=== PATIENT | male | born 1995 | race Caucasian/White ===

== ENCOUNTER 2020-02-21 20:32 | Emergency (ER) | payer BC ==
[~2020-02-21] VITALS: Ht 190.5 cm; Wt 102.1 kg
[2020-02-21] MEDS ORDERED: LISD50CA2 PO (20:45)
[2020-02-21] MEDS ORDERED: METH10TA4 PO (20:45)
[2020-02-21] MEDS ORDERED: ALPR0.5T PO (20:45)
--- NOTE | 2020-02-21 20:52 | NUR ---
Gus is with patient in room now with suture kit to treat patient.
[2020-02-21] MEDS ORDERED: LIDOCAINE 1%-EPI 1:100,000 20 ML VIAL IJ ONE (21:15)
[2020-02-21] MEDS ORDERED: SODIUM BICARBONATE 4.2 % (NEUT) 5 ML VIAL TP ONE (21:15)
[2020-02-21] MEDS ORDERED: TDAP DIPH,PERTUSS,TET VAC/PF 0.5 ML DISP.SYRIN IM ONE ×2 (21:15→21:28)
[2020-02-21 21:49] VITALS: BP 122/81
--- NOTE | 2020-02-21 21:49 | NUR ---
Patient discharged to home in stable condition. Written and verbal after care instructions given. Patient verbalizes understanding of instructions. Stressed follow up or return to ER for worsening s/s. Patient ambulated out of ER with steady gait, no acute signs of distress, VSS, all belongings taken.
== END 2020-02-21 21:49 | disposition home or self-care (01) ==
LOC: ER 20:40
DX: S61.217A Laceration without foreign body of left little finger without damage to nail, initial encounter (principal); W26.0XXA Contact with knife, initial encounter; Y93.G1 Activity, food preparation and clean up; Y92.89 Other specified places as the place of occurrence of the external cause; Z91.041 Radiographic dye allergy status; F90.9 Attention-deficit hyperactivity disorder, unspecified type; Z79.899 Other long term (current) drug therapy
CPT/HCPCS: 12001; 90471; 90715; 99282; J3490; A4663